=== PATIENT | female | born 1995 | race American Indian/Alaskan Native ===

== ENCOUNTER 2021-11-20 08:17 | Emergency (ER) | payer SELFPAY ==
[2021-11-20 08:25] VITALS: BP 144/72
--- NOTE | 2021-11-20 08:49 | XRay Report ---
CHEST 2 VIEWS INDICATION / CLINICAL INFORMATION: shortness of breath, chest pain. COMPARISON: None available. FINDINGS: SUPPORT DEVICES: None. HEART / MEDIASTINUM: No significant abnormality. LUNGS / PLEURA: No significant pulmonary or pleural abnormality. No pneumothorax. ADDITIONAL FINDINGS: No significant additional findings. IMPRESSION: 1. No acute findings. Signer Name: Lázaro Reyna Jr, MD Signed: 11/20/2021 8:45 AM Workstation Name: [id number]
--- NOTE | 2021-11-20 13:43 | Electrocardiograph Report ---
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
--- NOTE | 2021-11-20 13:54 | Emergency Department Report ---
ED General Adult HPI - General Chief complaint: Dyspnea/Respdistress Stated complaint: CHEST PAIN/DIZZY/SOB Time Seen by Provider: 11/20/21 13:43 Source: patient Mode of arrival: Ambulatory Limitations: No Limitations - History of Present Illness Initial comments: Patient is a 26-year-old female who presents with chest pain which she describes as a tightness worse with information inflammation that started last night it is sharp and 7 out of 10 at its worst. She denies any nausea vomiting or diaphoresis but when it came on initially she was a little short of breath. She thinks she may have gotten anxious. This woke her up from sleep at approximately 3:00 in the morning. She has had some generalized fatigue as well today. She denies tobacco use. No oral contraceptive use no recent long car rides/travel or other sedentary behavior, but she does have some mild pain in her right calf. No history of hypertension, hyperlipidemia, diabetes. No family history of coronary artery disease, DVT or PE. -: Last night Location: chest Radiation: non-radiation Severity scale (0 -10): 7 Quality: sharp Consistency: intermittent Improves with: none Worsens with: movement, other (Inspiration) Associated Symptoms: shortness of breath. denies: confusion, cough, diaphoresis, fever/chills, headaches, loss of appetite, malaise, nausea/vomiting, rash, syncope, weakness Treatments Prior to Arrival: none - Related Data Previous Rx's Medication Instructions Recorded Last Taken Type Cyclobenzaprine HCl 10 mg PO HS PRN #10 tab 11/20/21 Unknown Rx Naproxen Sodium [Naproxen Sodium 375 mg PO BID #20 tab 11/20/21 Unknown Rx Cr 375mg] Allergies Allergy/AdvReac Type Severity Reaction Status Date / Time No Known Allergies Allergy Unverified 11/20/21 08:25 ED Review of Systems ROS: Stated complaint: CHEST PAIN/DIZZY/SOB Other details as noted in HPI Comment: All other systems reviewed and negative Constitutional: denies: chills, diaphoresis, fever Eyes: denies: eye pain, eye discharge, vision change ENT: denies: throat pain, congestion Respiratory: shortness of breath. denies: cough, orthopnea, wheezing Cardiovascular: as per HPI. denies: palpitations, edema Endocrine: denies: intolerance to cold, intolerance to heat, unexplained weight gain, unexplained weight loss Gastrointestinal: denies: abdominal pain, nausea, vomiting, diarrhea, constipation Genitourinary: denies: dysuria, frequency, hematuria Musculoskeletal: denies: back pain, joint swelling, arthralgia Skin: denies: rash Neurological: denies: headache, weakness, numbness, paresthesias, confusion, abnormal gait Psychiatric: denies: anxiety, depression Hematological/Lymphatic: denies: easy bleeding, easy bruising ED Past Medical Hx - Past Medical History Previous Medical History?: No - Surgical History Past Surgical History?: No - Family History Family history: no significant - Social History Smoking Status: Never Smoker Substance Use Type: None, Alcohol (Occasional alcohol. Denies cocaine or amphetamine use) - Medications Home Medications: Home Medications Medication Instructions Recorded Confirmed Last Taken Type Cyclobenzaprine HCl 10 mg PO HS PRN #10 tab 11/20/21 Unknown Rx Naproxen Sodium [Naproxen Sodium 375 mg PO BID #20 tab 11/20/21 Unknown Rx Cr 375mg] ED Physical Exam - General Limitations: No Limitations General appearance: alert, in no apparent distress - Head Head exam: Present: atraumatic, normocephalic - Eye Eye exam: Present: PERRL, EOMI. Absent: scleral icterus, conjunctival injection - ENT ENT exam: Present: mucous membranes moist - Neck Neck exam: Present: normal inspection. Absent: tenderness - Respiratory Respiratory exam: Present: normal lung sounds bilaterally, chest wall tenderness (Exquisite tenderness at the costochondral margins.). Absent: respiratory distress, wheezes, rales - Cardiovascular Cardiovascular Exam: Present: regular rate, normal rhythm, normal heart sounds - GI/Abdominal GI/Abdominal exam: Present: soft. Absent: distended, tenderness, guarding - Extremities Exam Extremities exam: Present: normal inspection, full ROM - Back Exam Back exam: Present: normal inspection, full ROM. Absent: tenderness - Neurological Exam Neurological exam: Present: alert, oriented X3, CN II-XII intact - Psychiatric Psychiatric exam: Present: normal affect, normal mood - Skin Skin exam: Present: warm, dry, intact, normal color. Absent: rash ED Course Vital Signs 11/20/21 08:21 Temperature 98.5 F Pulse Rate 69 Respiratory 20 Rate Blood Pressure 144/72 [Right] O2 Sat by Pulse 100 Oximetry - Reevaluation(s) Reevaluation #1: 11/20/21 15:59 Improvement with Toradol ED Medical Decision Making - EKG Data Interpretation: no acute changes 11/20/21 13:45 Sinus rhythm at 67 bpm without ischemic changes. - Radiology Data Radiology results: report reviewed, image reviewed [facility] [address] [place] [address] XRay Report Signed Patient: IESHA PAGE MR#: [id number] : 1995 Acct:[id number] Age/Sex: 26 / F ADM Date: 11/20/21 Loc: ED Attending Dr: Ordering Physician: KEYLA WALKER MD Date of Service: 11/20/21 Procedure(s): XR chest routine 2V Accession Number(s): [id number] cc: ED MD AARON Fluoro Time In Minutes: CHEST 2 VIEWS INDICATION / CLINICAL INFORMATION: shortness of breath, chest pain. COMPARISON: None available. FINDINGS: SUPPORT DEVICES: None. HEART / MEDIASTINUM: No significant abnormality. LUNGS / PLEURA: No significant pulmonary or pleural abnormality. No pneumothorax. ADDITIONAL FINDINGS: No significant additional findings. IMPRESSION: 1. No acute findings. Signer Name: Lázaro Reyna Jr, MD Signed: 11/20/2021 8:45 AM Workstation Name: [id number] Transcribed By: TTR Dictated By: LÁZARO REYNA JR, MD Electronically Authenticated By: LÁZARO REYNA JR, MD Signed Date/Time: 11/20/21844 DD/ 4 TD/TT: - Medical Decision Making Reproducible chest wall pain in 26-year-old female with no cardiac or DVT risk f actors and a normal D-dimer. Likely musculoskeletal. Will treat as such and have her follow-up with primary care doctor 3 to 5 days and return if worse.. - Differential Diagnosis Chest pain. Cardiac versus musculoskeletal versus pulmonary versus GI etio Critical care attestation.: If time is entered above; I have spent that time in minutes in the direct care of this critically ill patient, excluding procedure time. ED Disposition Clinical Impression: Acute chest wall pain Disposition: HOME / SELF CARE / HOMELESS Is pt being admited?: No Condition: Stable Instructions: Nonspecific Chest Pain, Adult, Costochondritis Additional Instructions: follow-up with primary care doctor 3 to 5 days and return if worse.. Anti- inflammatories, muscle relaxers. Return if any worsening of symptoms. Prescriptions: Cyclobenzaprine HCl 10 mg PO HS PRN #10 tab PRN Reason: Spasms Naproxen Sodium [Naproxen Sodium Cr 375mg] 375 mg PO BID #20 tab Referrals: KRISS CRAIG MD [Referring] - 3-5 Days Forms: Work/School Release Form(ED) Time of Disposition: 16:06
[2021-11-20] MEDS ORDERED: KETOROLAC 30 MG/1 ML INJ IM ONE (14:49)
== END 2021-11-20 16:30 | disposition home or self-care (01) ==
LOC: ED 08:17
DX: R07.9 Chest pain, unspecified (principal)
CPT/HCPCS: 36415; 71046; 85379; 93005; 96372; 99283; J1885